=== PATIENT | female | born 1970 | race Caucasian/White ===

== ENCOUNTER 2018-02-12 21:06 | Emergency (ER) | payer SELFPAY ==
--- NOTE | 2018-02-12 21:45 | RADIOLOGY REPORT (SQ) ---
EXAM DESCRIPTION: XR CHEST 1 VIEW COMPLETED DATE/TME: 02/12/2018 21:12 CLINICAL HISTORY: 47 years, Female, shortness of breath Findings: The heart is not enlarged. No consolidation or pleural effusion. No pulmonary edema or pneumothorax. IMPRESSION: No acute disease.
[2018-02-12 21:56] LABS: ABSOLUTE BASOPHILS # (AUTO) 0.2 10^3/uL (0.0-0.2); ABSOLUTE EOSINOPHILS # (AUTO) 0.3 10^3/uL (0.0-0.6); ABSOLUTE LYMPHOCYTES (AUTO) 2.8 10^3/uL (0.5-4.7); ABSOLUTE MONOCYTES (AUTO) 0.7 10^3/uL (0.1-1.4); ABSOLUTE NEUT (AUTO) 5.2 10^3/uL (1.7-8.2); BASOPHILS % (AUTO) 1.9 % (0-2); EOSINOPHILS % (AUTO) 3.5 % (0-6); HEMATOCRIT 35.9 % (36.0-47.0); HEMOGLOBIN 12.3 g/dL (12.0-15.5); LYMPHOCYTES % (AUTO) 30.1 % (13-45); MEAN CORPUSCULAR HGB CONC 34.3 g/dL (32.0-36.0); MEAN CORPUSCULAR VOLUME 88 fl (80-97); MONOCYTES % (AUTO) 7.5 % (3-13); PLATELET COUNT 304 10^3/uL (150-450); RED CELL DISTRIBUTION WIDTH 15.5 % (11.5-14.0); TOTAL CELLS COUNTED % (AUTO) 100 %; WHITE BLOOD COUNT 9.1 10^3/uL (4.0-10.5)
[2018-02-12 21:58] LABS: APPEARANCE,URINE SLIGHTLY-CLOUDY; BILIRUBIN,URINE NEGATIVE (NEGATIVE); COLOR,URINE COLORLESS; GLUCOSE, URINE NEGATIVE (NEGATIVE); KETONES,URINE NEGATIVE (NEGATIVE); LEUKOCYTE ESTERASE,URINE TRACE (NEGATIVE); NITRITE,URINE NEGATIVE (NEGATIVE); PROTEIN,URINE NEGATIVE (NEGATIVE); URINE SPECIFIC GRAVITY 1.002; UROBILINOGEN,URINE NEGATIVE mg/dL (<2.0)
[2018-02-12 22:19] LABS: ALANINE AMINOTRANSFERASE 13 U/L (9-52); ALBUMIN 4.2 g/dL (3.5-5.0); ALKALINE PHOSPHATASE 73 U/L (38-126); ANION GAP 12 (5-19); ASPARTATE AMINO TRANSFERASE 16 U/L (14-36); BILIRUBIN,DIRECT 0.1 mg/dL (0.0-0.4); BILIRUBIN,TOTAL 0.3 mg/dL (0.2-1.3); BLOOD UREA NITROGEN 8 mg/dL (7-20); CALCIUM 9.4 mg/dL (8.4-10.2); CARBON DIOXIDE 24 mmol/L (22-30); CHLORIDE 107 mmol/L (98-107); GLUCOSE 107 mg/dL (75-110); POTASSIUM 3.8 mmol/L (3.6-5.0); SODIUM 143.1 mmol/L (137-145); TOTAL PROTEIN 7.2 g/dL (6.3-8.2)
--- NOTE | 2018-02-12 23:02 | ER Document Report ---
HPI - HPI Patient complains to provider of: Cough and congestion Pain Level: 2 Context: Patient is a 47-year-old female complaining of cough congestion and left ear pressure for the last 2 weeks. Patient denies fever, chest pain, shortness of breath, dysuria, vaginal discharge, abdominal pain. Patient states intermittent headaches but currently does not have a headache. Patient does not have a primary care provider in order to have insurance. She has not followed up with any other providers outpatient. Patient states she knows that her blood pressure is elevated at this time she is not on any medications. Past medical history: None Medications: None Allergies: None Surgical history: None Patient does admit to everyday cigarette smoking, denies illicit drug use, denies EtOH use. Past Medical History - General Information source: Patient - Social History Smoking Status: Current Every Day Smoker Lives with: Family Family History: Reviewed & Not Pertinent Past Surgical History: Reports: Hx Cardiac Surgery Vertical Provider Document - CONSTITUTIONAL Agree With Documented VS: Yes Notes: GENERAL: Alert, interacts well. No acute distress. Nontoxic, texting on her cell phone. HEAD: Normocephalic, atraumatic. EYES: Pupils equal, round, and reactive to light. Extraocular movements intact. ENT: Oral mucosa moist, tongue midline. Nares patent, swollen turbinates bilaterally, TM's intact, not erythematous nonbulging. Pharynx within normal limits, no exudate noted no palatal petechiae. NECK: Full range of motion. Supple. Trachea midline. No lymphadenopathy appreciated LUNGS: Clear to auscultation bilaterally, no wheezes, rales, or rhonchi. No respiratory distress. HEART: Regular rate and rhythm. No murmur ABDOMEN: Soft, non-tender. Non-distended. Bowel sounds present in all 4 quadrants. EXTREMITIES: Moves all 4 extremities spontaneously. No edema, normal radial and dorsalis pedis pulses bilaterally. No cyanosis. BACK: no cervical, thoracic, lumbar midline tenderness. No saddle anesthesia, normal distal neurovascular exam. NEUROLOGICAL: Alert and oriented x3. Normal speech. cranial nerves II through XII grossly intact. PSYCH: Normal affect, normal mood. SKIN: Warm, dry, normal turgor. No rashes or lesions noted. - INFECTION CONTROL TRAVEL OUTSIDE OF THE [place] IN LAST 30 DAYS: No Course - Re-evaluation Re-evalutation: 02/12/18 23:00 Labs show no signs of leukocytosis, no urinary tract infection, no pneumonia shown on chest x-ray. Likely upper respiratory infection caused by virus. Discussed her asymptomatic hypertension at this time states she has been taking [id number] cold medicines which could be attributing to the blood pressure issues. Discussed need for follow-up at [facility] or with a primary care provider. Close return precautions discussed - Vital Signs Vital signs: Temp Pulse Resp BP Pulse Ox 98.8 F 80 18 163/98 H 98 02/12/18 21:16 02/12/18 21:16 02/12/18 21:16 02/12/18 21:16 02/12/18 21:16 - Laboratory Result Diagrams: 02/12/18 21:45 02/12/18 21:45 Laboratory results interpreted by me: 02/12/18 02/12/18 21:45 21:45 Hct 35.9 L RDW 15.5 H Urine Blood SMALL H Ur Leukocyte Esterase TRACE H Discharge - Discharge Clinical Impression: Upper respiratory infection Qualifiers: URI type: unspecified URI Qualified Code(s): J06.9 - Acute upper respiratory infection, unspecified Condition: Stable Disposition: HOME, SELF-CARE Instructions: Upper Respiratory Illness ([facility]), Viral Syndrome ([facility]) Additional Instructions: As we discussed you have been seen and treated in the emergency department for an upper respiratory infection. Unfortunately these are caused by viruses do not respond to antibiotics. You should make an appointment at the [facility] for your blood pressure if it continues to be elevated. Please stop taking [id number] medications as that can aid in your elevated blood pressure. You should take something called Coricidin HBP which is a cold medication safe and hypertension. You should also take prescription medications as prescribed. Please return to the emergency room for any other concerning symptoms. Prescriptions: Benzonatate [Tessalon Perles 100 mg Capsule] 100 mg PO Q8HP PRN #40 capsule PRN Reason: Mometasone Furoate [Nasonex] 1 spray NS Q12 #1 spray.pump Forms: Smoking Cessation Education Referrals: [facility] [Provider Group] - Follow up as needed
[2018-02-12 23:27] VITALS: BP 151/95
== END 2018-02-12 23:22 | disposition home or self-care (01) ==
LOC: ER 21:06
DX: J06.9 Acute upper respiratory infection, unspecified (principal); R05 Cough; H92.02 Otalgia, left ear; R51 Headache; F17.210 Nicotine dependence, cigarettes, uncomplicated
CPT/HCPCS: 36415; 71045; 80053; 81001; 85025; 99284